=== PATIENT | female | born 1960 | race Caucasian/White ===

== ENCOUNTER 2024-11-14 07:49 | Day surgery (SDC) | payer MEDICARE, BC ==
[2024-11-14] MEDS: Lactated Ringers 1,000 ML IV SCH (08:50)
[2024-11-14] MEDS ORDERED: Propofol 200 MG/20 ML SDV ONE (10:07)
[2024-11-14] MEDS ORDERED: Midazolam 1 MG/ML 2 ML SDV ONE (10:07)
[2024-11-14] MEDS ORDERED: fentaNYL 50 MCG/ML SDV ONE (10:07)
== END 2024-11-14 12:09 | disposition home or self-care (01) ==
LOC: JP.SDS 07:49
PROVIDERS: ATTEND Surgery
DX: K64.8 Other hemorrhoids (principal); K63.5 Polyp of colon; I10 Essential (primary) hypertension; K21.9 Gastro-esophageal reflux disease without esophagitis
CPT/HCPCS: 00811-QZ; 88305; J2250; J2704; J3010; J7120